=== PATIENT | female | born 1965 | race Caucasian/White ===

== ENCOUNTER 2016-04-26 12:44 | Emergency (ER) | payer OTHER ==
[~2016-04-26] VITALS: Ht 162.6 cm; Wt 85.2 kg
[~2016-04-26 12:44] MED LIST: ADULT LOW DOSE81 M1 PO; AMOXICILLIN875 MG PO; ATIVAN0.5 MG PO; BACTRIM,SEPT1 TABLET PO; BENTYL20 MG PO; CARAFATE100 MG/ML PO; CLONAZEPAM0.5 MG PO; CYCLOBENZAPRINE5 MG PO; DOCUSATE SODIU100 MG PO; Ecotrin PO; FLEXERIL10 MG PO; FLEXERIL5 MG PO; GABAPENTIN300 MG PO; HYDROCHLOROTHIA25 MG PO; HYDROCODON-ACE1 EAC7 PO; KEFLEX500 MG PO; KLONOPIN0.5 M1 PO; LEVAQUIN750 MG PO; LIBRIUM25 MG PO; LIDOCAINE700 MG TD; Librium PO; MIRALAX255 GM PO; MOTRIN IB200 MG PO; MOTRIN600 MG PO; MOTRIN800 MG PO; NAPROSYN500 MG PO; NAPROXEN500 MG PO; NEXIUM40 MG PO; NOHOMEMEDS; NORCO 5/3251 TABLET PO; OMEPRAZOLE40 M1 PO; OXYCODONE HCL5 MG PO; PEN-VEE K,VEET500 MG PO; PERCOCET 5/31 TABLET PO; PHENAZOPYRIDIN200 MG PO; PREDNISONE20 MG PO; PRILOSEC40 MG PO; PROZAC10 M2 PO; PYRIDIUM100 MG PO; PYRIDIUM200 MG PO; ROBITUSSIN AC,T10 ML PO; ROBITUSSIN DM118 ML PO; TRAMADOL HCL50 MG PO; TYLENOL EXTRA500 MG PO; TYLENOL WITH C1 EACH PO; VALIUM5 MG PO; VICODIN,LORT1 TABLET PO; ZOFRAN ODT4 MG PO; ZOFRAN ODT8 MG PO; ZOFRAN4 MG PO; depakote; elavil
[2016-04-26 14:26] LABS: MCHC 33.1 G/DL (30.0-36.0); MCV 84.8 FL (83-99); MEAN PLAT.VOLUME 9.7 uM^3 (9.5-12.4); PLATELET COUNT 307 K/uL (156-360); RBC DIS.WIDTH-CV 13.9 % (11.8-14.6); RBC DIS.WIDTH-SD 42.6 % (39-53); WHITE BLOOD COUNT 6.6 K/uL (4.1-10.2)
[2016-04-26 15:00] LABS: ANION GAP 9 MEQ/L (2-14); CHLORIDE 105 MEQ/L (99-109); POTASSIUM 4.8 MEQ/L (3.7-5.4); SAMPLE HEMOLYSIS CHECK 0; SAMPLE ICTERIC CHECK 0; SAMPLE LIPEMIA CHECK 0; SODIUM 138 MEQ/L (136-147)
[2016-04-26 15:06] LABS: GFR ESTIMATE (CALCULATED) > 59 mL/min/; GLUCOSE 95 mg/dL (70-99); UREA NITROGEN (BUN) 11 mg/dL (9-23)
[2016-04-26] MEDS ORDERED: PROVENTIL HFA6.7 GM IH (15:15)
[2016-04-26] MEDS ORDERED: TESSALON200 MG PO (15:17)
[2016-04-26 15:29] VITALS: BP 151/94
== END 2016-04-26 15:31 | disposition home or self-care (01) ==
LOC: EME 12:44
DX: J20.9 Acute bronchitis, unspecified (principal); I10 Essential (primary) hypertension; Z88.4 Allergy status to anesthetic agent; Z88.8 Allergy status to other drugs, medicaments and biological substances
CPT/HCPCS: 71020; 80048; 85027; 99281; 99284

== ENCOUNTER 2016-05-09 10:46 | Emergency (ER) | payer OTHER ==
[~2016-05-09] VITALS: Ht 162.6 cm; Wt 85.8 kg
[~2016-05-09 10:46] MED LIST changes: +PROVENTIL HFA6.7 GM IH; +TESSALON200 MG PO
[2016-05-09] MEDS ORDERED: NAPROXEN500 MG PO (13:10)
[2016-05-09] MEDS ORDERED: BACLOFEN10 MG PO (13:10)
[2016-05-09 13:34] VITALS: BP 140/88
== END 2016-05-09 13:36 | disposition home or self-care (01) ==
LOC: EME 10:46
DX: S40.021A Contusion of right upper arm, initial encounter (principal); S50.11XA Contusion of right forearm, initial encounter; S00.03XA Contusion of scalp, initial encounter; Y04.8XXA Assault by other bodily force, initial encounter; I10 Essential (primary) hypertension
CPT/HCPCS: 73060; 73090; 73130; 99281; 99284; J3010

== ENCOUNTER 2016-06-02 18:22 | Emergency (ER) | payer OTHER ==
[~2016-06-02] VITALS: Ht 162.6 cm; Wt 87.0 kg
[~2016-06-02 18:22] MED LIST changes: +BACLOFEN10 MG PO
[2016-06-02 19:01] LABS: HEMATOCRIT 39.8 % (36.0-46.0); MCHC 32.9 G/DL (30.0-36.0); MEAN PLAT.VOLUME 9.7 uM^3 (9.5-12.4); PLATELET COUNT 305 K/uL (156-360); RBC DIS.WIDTH-CV 14.4 % (11.8-14.6); RED BLOOD COUNT 4.68 M/uL (3.80-5.20); WHITE BLOOD COUNT 8.2 K/uL (4.1-10.2)
[2016-06-02 19:09] LABS: CHLORIDE 105 mEq/L (99-109); POTASSIUM 4.3 mEq/L (3.7-5.4); SODIUM 140 mEq/L (136-147)
[2016-06-02 19:11] LABS: GLUCOSE 95 mg/dL (70-99)
[2016-06-02 19:12] LABS: ANION GAP 9 MEQ/L (2-14)
[2016-06-02 19:14] LABS: GFR ESTIMATE (CALCULATED) 56 mL/min/
[2016-06-02 19:15] LABS: UREA NITROGEN (BUN) 12 mg/dL (9-23)
[2016-06-02 19:22] LABS: TROP-I INTERPRETATION NEGATIVE; TROPONIN-I < 0.01 ng/mL (0.0-0.30)
[2016-06-02 21:52] LABS: TROP-I INTERPRETATION NEGATIVE; TROPONIN-I < 0.01 ng/mL (0.0-0.30)
[2016-06-02] MEDS ORDERED: ZITHROMAX250 MG PO (22:46)
[2016-06-02] MEDS ORDERED: HYCODAN SYRUP480 ML PO (22:46)
[2016-06-02 22:53] VITALS: BP 152/91
== END 2016-06-02 22:54 | disposition home or self-care (01) ==
LOC: EME 18:22
PROVIDERS: Physician Assistant
DX: J06.9 Acute upper respiratory infection, unspecified (principal); R07.9 Chest pain, unspecified; I10 Essential (primary) hypertension; Z88.6 Allergy status to analgesic agent
CPT/HCPCS: 71020; 80048; 84484; 85027; 87651 90; 93005; 99281; 99284

== ENCOUNTER 2016-06-07 09:10 | Emergency (ER) | payer OTHER ==
[~2016-06-07] VITALS: Ht 162.6 cm; Wt 88.0 kg
[~2016-06-07 09:10] MED LIST changes: +HYCODAN SYRUP480 ML PO; +ZITHROMAX250 MG PO
[2016-06-07] MEDS ORDERED: HYCODAN SYRUP480 ML PO (10:30)
[2016-06-07] MEDS ORDERED: PREDNISONE50 MG PO (10:30)
[2016-06-07 10:36] VITALS: BP 144/98
== END 2016-06-07 10:43 | disposition home or self-care (01) ==
LOC: EME 09:10
DX: J40 Bronchitis, not specified as acute or chronic (principal); I10 Essential (primary) hypertension
CPT/HCPCS: 94640; 99281; 99284; J7512

== ENCOUNTER 2016-06-17 15:23 | Emergency (ER) | payer OTHER ==
[~2016-06-17] VITALS: Ht 162.6 cm; Wt 88.1 kg
[~2016-06-17 15:23] MED LIST changes: +PREDNISONE50 MG PO
[2016-06-17 15:27] VITALS: BP 129/69
[2016-06-17] MEDS ORDERED: LYRICA75 MG PO (17:09)
[2016-06-17] MEDS ORDERED: OMEPRAZOLE40 M1 PO (17:09)
[2016-06-17] MEDS ORDERED: MIRTAZAPINE15 MG PO (17:09)
[2016-06-17 17:25] LABS: HEMATOCRIT 42.4 % (36.0-46.0); MCH 27.9 PG (29.0-34.0); MCHC 33.3 G/DL (30.0-36.0); MCV 83.8 FL (83-99); MEAN PLAT.VOLUME 9.3 uM^3 (9.5-12.4); PLATELET COUNT 386 K/uL (156-360); RBC DIS.WIDTH-CV 13.9 % (11.8-14.6); RBC DIS.WIDTH-SD 42.2 % (39-53); RED BLOOD COUNT 5.06 M/uL (3.80-5.20); WHITE BLOOD COUNT 6.3 K/uL (4.1-10.2)
[2016-06-17 17:46] LABS: CHLORIDE 106 mEq/L (99-109); POTASSIUM 3.9 mEq/L (3.7-5.4); SODIUM 144 mEq/L (136-147)
[2016-06-17 17:47] LABS: GLUCOSE 93 mg/dL (70-99)
[2016-06-17 17:48] LABS: TROP-I INTERPRETATION NEGATIVE; TROPONIN-I < 0.01 ng/mL (0.0-0.30)
[2016-06-17 17:49] LABS: ANION GAP 10 MEQ/L (2-14)
[2016-06-17 17:51] LABS: GFR ESTIMATE (CALCULATED) 56 mL/min/
[2016-06-17 17:52] LABS: UREA NITROGEN (BUN) 18 mg/dL (9-23)
== END 2016-06-17 19:02 | disposition left against medical advice (07) ==
LOC: EME 15:23
PROVIDERS: Nurse Practitioner Family
DX: S29.011A Strain of muscle and tendon of front wall of thorax, initial encounter (principal); J06.9 Acute upper respiratory infection, unspecified; I10 Essential (primary) hypertension
CPT/HCPCS: 71020; 80048; 84484; 85027; 93005; 99281; 99284

== ENCOUNTER 2016-06-22 08:25 | Emergency (ER) | payer OTHER ==
[~2016-06-22] VITALS: Ht 162.6 cm; Wt 89.6 kg
[~2016-06-22 08:25] MED LIST changes: +LYRICA75 MG PO; +MIRTAZAPINE15 MG PO
[2016-06-22 09:08] LABS: HEMATOCRIT 35.9 % (36.0-46.0); MCH 27.4 PG (29.0-34.0); MCHC 32.9 G/DL (30.0-36.0); MCV 83.3 FL (83-99); MEAN PLAT.VOLUME 9.9 uM^3 (9.5-12.4); PLATELET COUNT 332 K/uL (156-360); RBC DIS.WIDTH-CV 13.1 % (11.8-14.6); RBC DIS.WIDTH-SD 39.8 % (39-53); RED BLOOD COUNT 4.31 M/uL (3.80-5.20)
[2016-06-22 09:09] LABS: WHITE BLOOD COUNT 14.1 K/uL (4.1-10.2)
[2016-06-22 09:39] LABS: ANION GAP 9 MEQ/L (2-14); CHLORIDE 105 MEQ/L (99-109); GFR ESTIMATE (CALCULATED) > 59 mL/min/; GLUCOSE 221 mg/dL (70-99); POTASSIUM 3.8 MEQ/L (3.7-5.4); SAMPLE HEMOLYSIS CHECK 0; SAMPLE ICTERIC CHECK 0; SAMPLE LIPEMIA CHECK 0; UREA NITROGEN (BUN) 10 mg/dL (9-23)
[2016-06-22 09:40] LABS: SODIUM 136 MEQ/L (136-147)
[2016-06-22 09:41] LABS: TROP-I INTERPRETATION NEGATIVE; TROPONIN-I < 0.01 ng/mL (0.0-0.30)
[2016-06-22] MEDS ORDERED: LEVAQUIN750 MG PO (10:53)
[2016-06-22 11:11] VITALS: BP 146/94
== END 2016-06-22 11:45 | disposition home or self-care (01) ==
LOC: EME 08:25
DX: J18.9 Pneumonia, unspecified organism (principal); I10 Essential (primary) hypertension
CPT/HCPCS: 71020; 80048; 84484; 85027; 93005; 99281; 99285; J1956; J2405; J3010; J7030

== ENCOUNTER 2016-07-23 19:36 | Emergency (ER) | payer OTHER ==
[~2016-07-23] VITALS: Ht 162.6 cm; Wt 90.0 kg
[2016-07-23] MEDS ORDERED: MOTRIN800 MG PO (21:22)
== END 2016-07-23 21:41 | disposition home or self-care (01) ==
LOC: EME 19:36
DX: M25.552 Pain in left hip (principal); M25.562 Pain in left knee; W18.30XA Fall on same level, unspecified, initial encounter
CPT/HCPCS: 73502; 73564; 99281; 99284

== ENCOUNTER 2016-09-16 19:15 | Emergency (ER) | payer OTHER ==
[~2016-09-16] VITALS: Ht 162.6 cm; Wt 89.1 kg
[2016-09-16 20:25] LABS: MCH 28.5 PG (29.0-34.0); MCHC 33.4 G/DL (30.0-36.0); MCV 85.4 FL (83-99); MEAN PLAT.VOLUME 9.7 uM^3 (9.5-12.4); PLATELET COUNT 293 K/uL (156-360); RBC DIS.WIDTH-CV 14.3 % (11.8-14.6); RBC DIS.WIDTH-SD 44.1 % (39-53); WHITE BLOOD COUNT 6.5 K/uL (4.1-10.2)
[2016-09-16 20:48] LABS: CHLORIDE 105 mEq/L (99-109); POTASSIUM 4.2 mEq/L (3.7-5.4); SODIUM 140 mEq/L (136-147)
[2016-09-16 20:50] LABS: GLUCOSE 104 mg/dL (70-99)
[2016-09-16 20:52] LABS: ANION GAP 8 MEQ/L (2-14)
[2016-09-16 20:54] LABS: GFR ESTIMATE (CALCULATED) 56 mL/min/
[2016-09-16 20:55] LABS: UREA NITROGEN (BUN) 11 mg/dL (9-23)
[2016-09-16 20:58] LABS: TROP-I INTERPRETATION NEGATIVE; TROPONIN-I < 0.01 ng/mL (0.0-0.30)
[2016-09-16] MEDS ORDERED: ZITHROMAX Z-PA250 MG PO (21:20)
[2016-09-16] MEDS ORDERED: HYCODAN SYRUP480 ML PO (21:21)
[2016-09-16] MEDS ORDERED: MEDROL DOSEPAK4 MG PO (21:21)
[2016-09-16 21:42] VITALS: BP 135/91
== END 2016-09-16 21:46 | disposition home or self-care (01) ==
LOC: EME 19:15
PROVIDERS: Physician Assistant
DX: J20.9 Acute bronchitis, unspecified (principal); I10 Essential (primary) hypertension; F41.9 Anxiety disorder, unspecified; F32.9 Major depressive disorder, single episode, unspecified; F10.21 Alcohol dependence, in remission; F19.10 Other psychoactive substance abuse, uncomplicated
CPT/HCPCS: 71020; 80048; 84484; 85027; 93005; 99281; 99284; J7512

== ENCOUNTER 2016-09-22 14:02 | Emergency (ER) | payer OTHER ==
[~2016-09-22] VITALS: Ht 162.6 cm; Wt 90.1 kg
[~2016-09-22 14:02] MED LIST changes: +MEDROL DOSEPAK4 MG PO; +ZITHROMAX Z-PA250 MG PO
[2016-09-22 18:17] VITALS: BP 149/93
== END 2016-09-22 18:18 | disposition home or self-care (01) ==
LOC: EME 14:02
DX: N81.10 Cystocele, unspecified (principal); I10 Essential (primary) hypertension; Z90.49 Acquired absence of other specified parts of digestive tract
CPT/HCPCS: 99281; 99284

== ENCOUNTER 2016-11-01 18:44 | Emergency (ER) | payer OTHER ==
[~2016-11-01] VITALS: Ht 162.6 cm; Wt 88.1 kg
[2016-11-01 18:53] VITALS: BP 157/104
[2016-11-01] MEDS ORDERED: TESSALON PERLE100 MG PO (19:57)
[2016-11-01] MEDS ORDERED: PREDNISONE20 MG PO (19:57)
[2016-11-01] MEDS ORDERED: VENTOLIN HFA18 GM IH (19:57)
== END 2016-11-01 20:50 | disposition home or self-care (01) ==
LOC: EME 18:44
DX: J20.9 Acute bronchitis, unspecified (principal); I10 Essential (primary) hypertension
CPT/HCPCS: 71020; 99281; 99283; J7512

== ENCOUNTER 2016-11-07 14:39 | Emergency (ER) | payer OTHER ==
[~2016-11-07] VITALS: Ht 162.6 cm; Wt 86.3 kg
[~2016-11-07 14:39] MED LIST changes: +TESSALON PERLE100 MG PO; +VENTOLIN HFA18 GM IH
[2016-11-07 15:10] LABS: HEMATOCRIT 39.9 % (36.0-46.0); MCH 28.1 PG (29.0-34.0); MCHC 33.1 G/DL (30.0-36.0); MCV 85.1 FL (83-99); MEAN PLAT.VOLUME 9.6 uM^3 (9.5-12.4); PLATELET COUNT 304 K/uL (156-360); RBC DIS.WIDTH-CV 14.6 % (11.8-14.6); RBC DIS.WIDTH-SD 45.3 % (39-53); RED BLOOD COUNT 4.69 M/uL (3.80-5.20); WHITE BLOOD COUNT 6.3 K/uL (4.1-10.2)
[2016-11-07 15:24] LABS: ANION GAP 8 MEQ/L (2-14); CHLORIDE 110 mEq/L (99-109); GLUCOSE 97 mg/dL (70-99); POTASSIUM 3.7 mEq/L (3.7-5.4); SODIUM 141 mEq/L (136-147)
[2016-11-07 15:26] LABS: GFR ESTIMATE (CALCULATED) > 59 mL/min/
[2016-11-07 15:27] LABS: UREA NITROGEN (BUN) 9 mg/dL (9-23)
[2016-11-07 15:31] LABS: TROP-I INTERPRETATION NEGATIVE; TROPONIN-I < 0.01 ng/mL (0.0-0.30)
[2016-11-07 15:42] LABS: QUANTITATIVE HCG < 4.0 MIU/ML
[2016-11-07 15:43] LABS: ADD MIUA? YES; BILIRUBIN NEGATIVE; BLOOD NEGATIVE; COLOR YELLOW ((YELLOW)); GLUCOSE (STRIP) NEGATIVE; KETONES NEGATIVE; LEUKOCYTES NEGATIVE; NITRITE NEGATIVE; PROTEIN (STRIP) 30; SPECIFIC GRAVITY 1.028 (1.000-1.030); UROBILINOGEN 0.2 MG/DL (0.2-1.0)
[2016-11-07 16:04] LABS: BACTERIA NONE SEEN /HPF; CASTS NONE SEEN /LPF; CRYSTALS NONE SEEN; EPITHELIAL CELLS RARE /HPF; MUCUS 3+ /LPF; RED BLOOD CELLS 0-5 /HPF (0-5); UCUL ADDED? NO; WHITE BLOOD CELLS 0-5 /HPF (0-5)
[2016-11-07] MEDS ORDERED: NORCO 5/3251 TABLET PO (17:02)
[2016-11-07] MEDS ORDERED: MOTRIN800 MG PO (17:02)
[2016-11-07 17:21] VITALS: BP 121/85
== END 2016-11-07 17:22 | disposition home or self-care (01) ==
LOC: EME 14:39
PROVIDERS: Nurse Practitioner Family
DX: R10.9 Unspecified abdominal pain (principal); I10 Essential (primary) hypertension; Z88.6 Allergy status to analgesic agent; Z88.5 Allergy status to narcotic agent
CPT/HCPCS: 71020; 74176; 80048; 81003; 84484; 84702; 85027; 93005; 99281; 99284

== ENCOUNTER 2016-11-22 14:12 | Emergency (ER) | payer OTHER ==
[~2016-11-22] VITALS: Ht 162.6 cm; Wt 85.0 kg
[2016-11-22 15:06] LABS: HEMATOCRIT 38.3 % (36.0-46.0); MCHC 33.4 G/DL (30.0-36.0); MCV 86.8 FL (83-99); MEAN PLAT.VOLUME 9.8 uM^3 (9.5-12.4); PLATELET COUNT 313 K/uL (156-360); RBC DIS.WIDTH-CV 13.7 % (11.8-14.6); RBC DIS.WIDTH-SD 44.2 % (39-53); RED BLOOD COUNT 4.41 M/uL (3.80-5.20); WHITE BLOOD COUNT 4.9 K/uL (4.1-10.2)
[2016-11-22 15:16] LABS: CHLORIDE 106 mEq/L (99-109); POTASSIUM 3.7 mEq/L (3.7-5.4); SODIUM 138 mEq/L (136-147)
[2016-11-22 15:18] LABS: GLUCOSE 86 mg/dL (70-99)
[2016-11-22 15:19] LABS: ANION GAP 8 MEQ/L (2-14)
[2016-11-22 15:22] LABS: GFR ESTIMATE (CALCULATED) > 59 mL/min/
[2016-11-22 15:23] LABS: UREA NITROGEN (BUN) 12 mg/dL (9-23)
[2016-11-22 15:27] LABS: TROP-I INTERPRETATION NEGATIVE; TROPONIN-I < 0.01 ng/mL (0.0-0.30)
[2016-11-22 15:36] VITALS: BP 142/91
== END 2016-11-22 15:37 | disposition left against medical advice (07) ==
LOC: EME 14:12
PROVIDERS: Nurse Practitioner Family
DX: R07.9 Chest pain, unspecified (principal); R42 Dizziness and giddiness; R06.00 Dyspnea, unspecified; I10 Essential (primary) hypertension; Z90.49 Acquired absence of other specified parts of digestive tract
CPT/HCPCS: 71020; 80048; 84484; 85027; 85379; 93005; 99281; 99284

== ENCOUNTER 2017-01-21 11:38 | Emergency (ER) | payer OTHER ==
[~2017-01-21] VITALS: Ht 162.6 cm; Wt 88.8 kg
[2017-01-21] MEDS ORDERED: NORCO 7.5/321 TABLET PO (13:22)
[2017-01-21] MEDS ORDERED: LIDOCAINE20 MG/1 M5 PO (13:22)
[2017-01-21] MEDS ORDERED: INDOCIN50 MG PO (13:22)
[2017-01-21] MEDS ORDERED: AUGMENTIN875 MG PO (13:22)
[2017-01-21 14:02] VITALS: BP 149/116
== END 2017-01-21 14:03 | disposition home or self-care (01) ==
LOC: EME 11:38
DX: K04.7 Periapical abscess without sinus (principal); K02.9 Dental caries, unspecified; R42 Dizziness and giddiness; I10 Essential (primary) hypertension
CPT/HCPCS: 99281; 99284

== ENCOUNTER 2017-01-31 08:17 | Emergency (ER) | payer OTHER ==
[~2017-01-31] VITALS: Ht 162.6 cm; Wt 89.9 kg
[~2017-01-31 08:17] MED LIST changes: +AUGMENTIN875 MG PO; +INDOCIN50 MG PO; +LIDOCAINE20 MG/1 M5 PO; +NORCO 7.5/321 TABLET PO
[2017-01-31 08:55] LABS: EOSINOPHIL (%) 3.7 % (0-5); EOSINOPHIL COUNT 0.3 K/uL (0-0.3); HEMATOCRIT 39.8 % (36.0-46.0); IMMATURE GRANULOCYTE (%) 0.4 % (0.0-0.7); INSTRUMENT ABS NEUTROPHIL CT 4.2 K/uL; LYMPHOCYTE COUNT 2.1 K/uL (1.0-2.8); MCHC 33.4 G/DL (30.0-36.0); MCV 86.7 FL (83-99); MEAN PLAT.VOLUME 9.6 uM^3 (9.5-12.4); MONOCYTE (%) 8.3 % (3-12); MONOCYTE COUNT 0.6 K/uL (0-0.8); NEUTROPHIL (%) 57.5 % (45-76); NEUTROPHIL COUNT 4.2 K/uL (1.8-6.4); PLATELET COUNT 291 K/uL (156-360); RBC DIS.WIDTH-CV 13.4 % (11.8-14.6); RBC DIS.WIDTH-SD 41.8 % (39-53); RED BLOOD COUNT 4.59 M/uL (3.80-5.20); WHITE BLOOD COUNT 7.3 K/uL (4.1-10.2)
[2017-01-31 09:06] LABS: CHLORIDE 108 mEq/L (99-109); POTASSIUM 4.1 mEq/L (3.7-5.4); SODIUM 139 mEq/L (136-147)
[2017-01-31 09:08] LABS: GLUCOSE 98 mg/dL (70-99)
[2017-01-31 09:09] LABS: ANION GAP 9 MEQ/L (2-14)
[2017-01-31 09:12] LABS: GFR ESTIMATE (CALCULATED) > 59 mL/min/
[2017-01-31 09:13] LABS: UREA NITROGEN (BUN) 11 mg/dL (9-23)
[2017-01-31 10:44] LABS: ADD MIUA? YES; BILIRUBIN NEGATIVE; BLOOD NEGATIVE; COLOR STRAW ((YELLOW)); GLUCOSE (STRIP) NEGATIVE; KETONES NEGATIVE; LEUKOCYTES TRACE; NITRITE NEGATIVE; PROTEIN (STRIP) NEGATIVE; UROBILINOGEN 0.2 MG/DL (0.2-1.0)
[2017-01-31 10:49] LABS: BACTERIA RARE /HPF; EPITHELIAL CELLS RARE /HPF; MUCUS TRACE /LPF; RED BLOOD CELLS 0-5 /HPF (0-5); URIC ACID CRYSTALS 1+ /HPF; WHITE BLOOD CELLS 0-5 /HPF (0-5)
[2017-01-31] MEDS ORDERED: PERCOCET 5/31 TABLET PO (11:06)
[2017-01-31 12:02] VITALS: BP 121/70
== END 2017-01-31 12:02 | disposition home or self-care (01) ==
LOC: EME 08:17
PROVIDERS: Emergency Medicine
DX: R10.31 Right lower quadrant pain (principal); I10 Essential (primary) hypertension; F32.9 Major depressive disorder, single episode, unspecified; F41.9 Anxiety disorder, unspecified; Z88.8 Allergy status to other drugs, medicaments and biological substances; Z90.49 Acquired absence of other specified parts of digestive tract
CPT/HCPCS: 74176; 80048; 81003; 85025; 99281; 99285; J2405; J3010; J7030

== ENCOUNTER 2017-02-28 09:46 | Emergency (ER) | payer OTHER ==
[~2017-02-28] VITALS: Ht 162.6 cm; Wt 90.3 kg
[2017-02-28 09:56] VITALS: BP 135/103
[2017-02-28 10:42] LABS: HEMATOCRIT 37.9 % (36.0-46.0); MCH 29.5 PG (29.0-34.0); MCHC 33.2 G/DL (30.0-36.0); MCV 88.8 FL (83-99); MEAN PLAT.VOLUME 9.6 uM^3 (9.5-12.4); PLATELET COUNT 248 K/uL (156-360); RBC DIS.WIDTH-CV 13.2 % (11.8-14.6); RBC DIS.WIDTH-SD 43.2 % (39-53); RED BLOOD COUNT 4.27 M/uL (3.80-5.20); WHITE BLOOD COUNT 4.9 K/uL (4.1-10.2)
[2017-02-28 10:53] LABS: CHLORIDE 108 mEq/L (99-109); POTASSIUM 3.9 mEq/L (3.7-5.4); SODIUM 139 mEq/L (136-147)
[2017-02-28 10:54] LABS: GLUCOSE 88 mg/dL (70-99)
[2017-02-28 10:56] LABS: ANION GAP 6 MEQ/L (2-14)
[2017-02-28 10:58] LABS: GFR ESTIMATE (CALCULATED) > 59 mL/min/
[2017-02-28 10:59] LABS: UREA NITROGEN (BUN) 11 mg/dL (9-23)
[2017-02-28 11:05] LABS: TROP-I INTERPRETATION NEGATIVE; TROPONIN-I < 0.01 ng/mL (0.0-0.30)
== END 2017-02-28 13:05 | disposition home or self-care (01) ==
LOC: EME 09:46
PROVIDERS: Emergency Medicine
DX: S70.02XA Contusion of left hip, initial encounter (principal); M79.662 Pain in left lower leg; W18.39XA Other fall on same level, initial encounter; R55 Syncope and collapse; R42 Dizziness and giddiness; I10 Essential (primary) hypertension
CPT/HCPCS: 73502; 73552; 73590; 80048; 84484; 85027; 93005; 99281; 99283

== ENCOUNTER 2017-04-01 11:20 | Emergency (ER) | payer OTHER ==
[~2017-04-01] VITALS: Ht 162.6 cm; Wt 91.2 kg
[2017-04-01] MEDS ORDERED: FLEXERIL5 MG PO (13:26)
[2017-04-01 13:45] VITALS: BP 139/104
== END 2017-04-01 13:45 | disposition home or self-care (01) ==
LOC: EME 11:20
DX: S43.401A Unspecified sprain of right shoulder joint, initial encounter (principal); M54.2 Cervicalgia; Y04.2XXA Assault by strike against or bumped into by another person, initial encounter; I10 Essential (primary) hypertension
CPT/HCPCS: 73030; 99281; 99283

== ENCOUNTER 2017-05-15 15:12 | Emergency (ER) | payer OTHER ==
[~2017-05-15] VITALS: Ht 162.6 cm; Wt 89.0 kg
[2017-05-15 15:41] LABS: HEMATOCRIT 42.4 % (36.0-46.0); HEMOGLOBIN 14.6 G/DL (11.9-15.5); MCH 30.4 PG (29.0-34.0); MCHC 34.4 G/DL (30.0-36.0); MCV 88.1 FL (83-99); PLATELET COUNT 337 K/uL (156-360); RBC DIS.WIDTH-CV 12.8 % (11.8-14.6); RBC DIS.WIDTH-SD 41.2 % (39-53); RED BLOOD COUNT 4.81 M/uL (3.80-5.20); WHITE BLOOD COUNT 7.2 K/uL (4.1-10.2)
[2017-05-15 15:54] LABS: CHLORIDE 105 mEq/L (99-109); POTASSIUM 3.9 mEq/L (3.7-5.4); SODIUM 141 mEq/L (136-147)
[2017-05-15 15:55] LABS: GLUCOSE 85 mg/dL (70-99)
[2017-05-15 15:59] LABS: GFR ESTIMATE (CALCULATED) > 59 mL/min/
[2017-05-15 16:00] LABS: UREA NITROGEN (BUN) 12 mg/dL (9-23)
[2017-05-15 16:59] VITALS: BP 146/89
== END 2017-05-15 17:00 | disposition left against medical advice (07) ==
LOC: EME 15:12
DX: B34.9 Viral infection, unspecified (principal); R05 Cough; I10 Essential (primary) hypertension; F31.9 Bipolar disorder, unspecified; F32.9 Major depressive disorder, single episode, unspecified; F41.9 Anxiety disorder, unspecified; Z90.49 Acquired absence of other specified parts of digestive tract; Z88.5 Allergy status to narcotic agent; Z88.6 Allergy status to analgesic agent; Z88.8 Allergy status to other drugs, medicaments and biological substances
CPT/HCPCS: 71046; 80048; 85027; 87502; 99281; 99283

== ENCOUNTER 2017-05-24 10:14 | Emergency (ER) | payer OTHER ==
[~2017-05-24] VITALS: Ht 162.6 cm; Wt 90.6 kg
[2017-05-24 10:33] LABS: APPEARANCE SL.HAZY ((CLEAR)); BILIRUBIN NEGATIVE; BLOOD SMALL; COLOR YELLOW ((YELLOW)); GLUCOSE (STRIP) NEGATIVE; KETONES 5; LEUKOCYTES LARGE; NITRITE NEGATIVE; PROTEIN (STRIP) 30; UROBILINOGEN 0.2 MG/DL (0.2-1.0)
[2017-05-24 10:50] LABS: HEMOGLOBIN 14.8 G/DL (11.9-15.5); MCH 29.9 PG (29.0-34.0); MCHC 33.6 G/DL (30.0-36.0); MCV 88.9 FL (83-99); PLATELET COUNT 322 K/uL (156-360); RBC DIS.WIDTH-CV 13.2 % (11.8-14.6); RBC DIS.WIDTH-SD 43.1 % (39-53); RED BLOOD COUNT 4.95 M/uL (3.80-5.20); WHITE BLOOD COUNT 6.7 K/uL (4.1-10.2)
[2017-05-24 11:01] LABS: CHLORIDE 109 mEq/L (99-109); POTASSIUM 4.6 mEq/L (3.7-5.4); SODIUM 142 mEq/L (136-147)
[2017-05-24 11:02] LABS: GLUCOSE 83 mg/dL (70-99)
[2017-05-24 11:04] LABS: EPITHELIAL CELLS RARE /HPF; MUCUS NONE SEEN /LPF; RED BLOOD CELLS RARE /HPF (0-5); WHITE BLOOD CELLS 20-30 /HPF (0-5)
[2017-05-24 11:05] LABS: BACTERIA RARE /HPF; UCUL ADDED? YES
[2017-05-24 11:06] LABS: GFR ESTIMATE (CALCULATED) > 59 mL/min/
[2017-05-24 11:07] LABS: UREA NITROGEN (BUN) 10 mg/dL (9-23)
[2017-05-24] MEDS ORDERED: MACROBID100 MG PO (12:11)
[2017-05-24] MEDS ORDERED: PYRIDIUM100 MG PO (12:15)
[2017-05-24 12:33] VITALS: BP 151/83
== END 2017-05-24 12:34 | disposition home or self-care (01) ==
LOC: EME 10:14
DX: N39.0 Urinary tract infection, site not specified (principal); I10 Essential (primary) hypertension; F32.9 Major depressive disorder, single episode, unspecified; F41.9 Anxiety disorder, unspecified; Z87.01 Personal history of pneumonia (recurrent); Z90.49 Acquired absence of other specified parts of digestive tract; Z88.5 Allergy status to narcotic agent; Z88.6 Allergy status to analgesic agent; Z88.8 Allergy status to other drugs, medicaments and biological substances
CPT/HCPCS: 74176; 80048; 81003; 85027; 87086; 99281; 99284; J7030

== ENCOUNTER 2017-08-07 17:57 | Emergency (ER) | payer OTHER ==
[~2017-08-07] VITALS: Ht 162.6 cm; Wt 96.3 kg
[~2017-08-07 17:57] MED LIST changes: +MACROBID100 MG PO
[2017-08-07 18:55] LABS: HEMATOCRIT 40.1 % (36.0-46.0); HEMOGLOBIN 13.6 G/DL (11.9-15.5); MCH 30.2 PG (29.0-34.0); MCHC 33.9 G/DL (30.0-36.0); MCV 88.9 FL (83-99); PLATELET COUNT 317 K/uL (156-360); RBC DIS.WIDTH-SD 42.8 % (39-53); RED BLOOD COUNT 4.51 M/uL (3.80-5.20); WHITE BLOOD COUNT 6.2 K/uL (4.1-10.2)
[2017-08-07 19:18] LABS: ALBUMIN 3.3 G/DL (3.2-4.8); CHLORIDE 107 MEQ/L (99-109); SODIUM 140 MEQ/L (136-147); TOTAL BILIRUBIN 0.4 MG/DL (0.0-1.0)
[2017-08-07 19:22] LABS: QUANTITATIVE HCG 4.7 MIU/ML
[2017-08-07 19:23] LABS: ALKALINE PHOSPHATASE 69 IU/L (3-129); ALT (GPT) 19 IU/L (3-49); AST (GOT) 21 IU/L (2-34); GFR ESTIMATE (CALCULATED) > 59 mL/min/; GLUCOSE 96 mg/dL (70-99); TOTAL PROTEIN 5.7 G/DL (6.4-8.3); UREA NITROGEN (BUN) 10 mg/dL (9-23)
[2017-08-07 20:33] LABS: LIPASE 16 U/L (1.0-51.0)
[2017-08-07 20:38] LABS: TROP-I INTERPRETATION NEGATIVE; TROPONIN-I < 0.01 ng/mL (0.0-0.30)
[2017-08-07 21:22] LABS: APPEARANCE SL.HAZY ((CLEAR)); BILIRUBIN NEGATIVE; BLOOD NEGATIVE; COLOR YELLOW ((YELLOW)); GLUCOSE (STRIP) NEGATIVE; KETONES NEGATIVE; LEUKOCYTES LARGE; NITRITE NEGATIVE; PROTEIN (STRIP) NEGATIVE; SPECIFIC GRAVITY 1.015 (1.000-1.030); UROBILINOGEN 0.2 MG/DL (0.2-1.0)
[2017-08-07 21:29] LABS: BACTERIA RARE /HPF; EPITHELIAL CELLS 2+ /HPF; MUCUS TRACE /LPF; UCUL ADDED? YES
[2017-08-07] MEDS ORDERED: MOTRIN800 MG PO (21:48)
[2017-08-07] MEDS ORDERED: REGLAN10 MG PO (21:48)
[2017-08-07] MEDS ORDERED: LEVSIN0.125 MG PO (21:48)
[2017-08-07 22:18] VITALS: BP 162/85
== END 2017-08-07 22:22 | disposition home or self-care (01) ==
LOC: EME 17:57
DX: R10.13 Epigastric pain (principal); R10.11 Right upper quadrant pain; K57.30 Diverticulosis of large intestine without perforation or abscess without bleeding; I10 Essential (primary) hypertension; F41.9 Anxiety disorder, unspecified; F32.9 Major depressive disorder, single episode, unspecified; F31.9 Bipolar disorder, unspecified; Z87.19 Personal history of other diseases of the digestive system; Z90.49 Acquired absence of other specified parts of digestive tract; Z98.51 Tubal ligation status; Z88.5 Allergy status to narcotic agent; Z88.6 Allergy status to analgesic agent
CPT/HCPCS: 71046; 74177; 80053; 81003; 83690; 84484; 84702; 85027; 87086; 93005; 99281; 99285; J2765; J7120

== ENCOUNTER 2017-09-25 15:44 | Emergency (ER) | payer OTHER ==
[~2017-09-25] VITALS: Ht 162.6 cm; Wt 98.8 kg
[~2017-09-25 15:44] MED LIST changes: +LEVSIN0.125 MG PO; +REGLAN10 MG PO
[2017-09-25 16:45] LABS: HEMATOCRIT 39.6 % (36.0-46.0); HEMOGLOBIN 13.6 G/DL (11.9-15.5); MCH 30.3 PG (29.0-34.0); MCHC 34.3 G/DL (30.0-36.0); MCV 88.2 FL (83-99); PLATELET COUNT 296 K/uL (156-360); RBC DIS.WIDTH-CV 12.5 % (11.8-14.6); RBC DIS.WIDTH-SD 40.5 % (39-53); RED BLOOD COUNT 4.49 M/uL (3.80-5.20); WHITE BLOOD COUNT 6.4 K/uL (4.1-10.2)
[2017-09-25 16:54] LABS: CHLORIDE 107 mEq/L (99-109); POTASSIUM 4.3 mEq/L (3.7-5.4); SODIUM 140 mEq/L (136-147)
[2017-09-25 16:55] LABS: GLUCOSE 81 mg/dL (70-99)
[2017-09-25 16:59] LABS: CREATININE 0.9 mg/dL (0.6-1.3); GFR ESTIMATE (CALCULATED) > 59 mL/min/; SERUM ETHYL ALCOHOL < 10 mg/dL
[2017-09-25 17:00] LABS: UREA NITROGEN (BUN) 9 mg/dL (9-23)
[2017-09-25 17:07] LABS: TROP-I INTERPRETATION NEGATIVE; TROPONIN-I < 0.01 ng/mL (0.0-0.30)
[2017-09-25 17:58] VITALS: BP 138/101
== END 2017-09-25 18:00 | disposition home or self-care (01) ==
LOC: EME 15:44
DX: R07.9 Chest pain, unspecified (principal); I10 Essential (primary) hypertension; Z88.5 Allergy status to narcotic agent; Z88.6 Allergy status to analgesic agent
CPT/HCPCS: 71046; 80048; 84484; 85027; 93005; 99281; 99283; G0480

== ENCOUNTER 2017-10-12 21:12 | Emergency (ER) | payer OTHER ==
[~2017-10-12] VITALS: Ht 162.6 cm; Wt 102.0 kg
[2017-10-12 22:09] LABS: MCH 29.7 PG (29.0-34.0); MCHC 34.2 G/DL (30.0-36.0); PLATELET COUNT 298 K/uL (156-360); RBC DIS.WIDTH-CV 12.3 % (11.8-14.6); RBC DIS.WIDTH-SD 39.7 % (39-53); RED BLOOD COUNT 4.37 M/uL (3.80-5.20); WHITE BLOOD COUNT 6.3 K/uL (4.1-10.2)
[2017-10-12 22:14] LABS: ALBUMIN 3.4 g/dL (3.2-4.8); CHLORIDE 109 mEq/L (99-109); POTASSIUM 3.9 mEq/L (3.7-5.4); SODIUM 141 mEq/L (136-147)
[2017-10-12 22:17] LABS: GLUCOSE 107 mg/dL (70-99); TOTAL PROTEIN 5.6 g/dL (6.4-8.3)
[2017-10-12 22:20] LABS: ALKALINE PHOSPHATASE 88 IU/L (3-129); CREATININE 1.1 mg/dL (0.6-1.3); GFR ESTIMATE (CALCULATED) 56 mL/min/
[2017-10-12 22:35] LABS: QUANTITATIVE HCG < 4.0 MIU/ML
[2017-10-12 22:36] LABS: APPEARANCE CLEAR ((CLEAR)); BILIRUBIN NEGATIVE; BLOOD NEGATIVE; COLOR YELLOW ((YELLOW)); GLUCOSE (STRIP) NEGATIVE; KETONES NEGATIVE; LEUKOCYTES TRACE; NITRITE NEGATIVE; PROTEIN (STRIP) NEGATIVE; SPECIFIC GRAVITY 1.017 (1.000-1.030); UROBILINOGEN 0.2 MG/DL (0.2-1.0)
[2017-10-12 22:48] LABS: TOTAL BILIRUBIN 0.3 mg/dL (0.0-1.0)
[2017-10-12 22:50] LABS: UREA NITROGEN (BUN) 11 mg/dL (9-23)
[2017-10-12 22:52] LABS: ALT (GPT) 17 IU/L (3-49); AST (GOT) 22 IU/L (2-34); DIRECT BILIRUBIN 0.1 mg/dL (0.0-0.3); LIPASE 18 U/L (1.0-51.0)
[2017-10-12 22:53] LABS: CREATINE KINASE 69 IU/L (1-294)
[2017-10-12 22:58] LABS: BACTERIA NONE SEEN /HPF; EPITHELIAL CELLS RARE /HPF; HYALINE CASTS 0-5 /LPF; MUCUS NONE SEEN /LPF; RED BLOOD CELLS 0-5 /HPF (0-5); UCUL ADDED? NO; WHITE BLOOD CELLS 0-5 /HPF (0-5)
[2017-10-12 23:42] LABS: COCAINE PRESUMPTIVE POSITIVE (150 ng/mL); METHAMPHETAMINE NEGATIVE (500 ng/mL); OPIATES (MORPHINE) PRESUMPTIVE POSITIVE (100 ng/mL); PHENCYCLIDINE NEGATIVE (25 ng/mL); THC CANNABINOIDS NEGATIVE (50 ng/mL)
[2017-10-12 23:43] LABS: AMPHETAMINE NEGATIVE (500 ng/mL); BARBITURATES NEGATIVE (200 ng/mL); BENZODIAZEPINES NEGATIVE (150 ng/mL); BUPRENORPHINE NEGATIVE (10 ng/mL); METHADONE NEGATIVE (200 ng/mL); OXYCODONE PRESUMPTIVE POSITIVE (100 ng/mL); PROPOXYPHENE NEGATIVE (300 ng/mL); TRICYCLIC ANTIDEPRESSANTS NEGATIVE (300 ng/mL)
[2017-10-13] MEDS ORDERED: MIRALAX255 GM PO (00:10)
[2017-10-13] MEDS ORDERED: ZOFRAN ODT8 MG PO (00:10)
[2017-10-13 00:53] VITALS: BP 130/86
== END 2017-10-13 00:56 | disposition home or self-care (01) ==
LOC: EME 21:12 → EXP 21:12
PROVIDERS: Physician Assistant
DX: S30.1XXA Contusion of abdominal wall, initial encounter (principal); X58.XXXA Exposure to other specified factors, initial encounter; R60.0 Localized edema; K59.00 Constipation, unspecified; I10 Essential (primary) hypertension; F41.9 Anxiety disorder, unspecified; F32.9 Major depressive disorder, single episode, unspecified; F31.9 Bipolar disorder, unspecified; Z87.19 Personal history of other diseases of the digestive system; Z90.49 Acquired absence of other specified parts of digestive tract; Z98.51 Tubal ligation status; Z88.6 Allergy status to analgesic agent; Z88.5 Allergy status to narcotic agent; Z88.8 Allergy status to other drugs, medicaments and biological substances
CPT/HCPCS: 74176; 80053; 81003; 82248; 82550; 83690; 83880; 84702; 84999; 85027; 99281; 99284; J3010

== ENCOUNTER 2017-10-19 17:59 | Emergency (ER) | payer OTHER ==
[~2017-10-19] VITALS: Ht 162.6 cm; Wt 101.8 kg
[2017-10-19 19:39] LABS: HEMATOCRIT 39.1 % (36.0-46.0); HEMOGLOBIN 13.4 G/DL (11.9-15.5); MCH 29.8 PG (29.0-34.0); MCHC 34.3 G/DL (30.0-36.0); MCV 87.1 FL (83-99); PLATELET COUNT 310 K/uL (156-360); RBC DIS.WIDTH-CV 12.3 % (11.8-14.6); RBC DIS.WIDTH-SD 39.1 % (39-53); RED BLOOD COUNT 4.49 M/uL (3.80-5.20); WHITE BLOOD COUNT 6.8 K/uL (4.1-10.2)
[2017-10-19 19:55] LABS: CHLORIDE 107 mEq/L (99-109); SODIUM 141 mEq/L (136-147)
[2017-10-19 19:57] LABS: GLUCOSE 85 mg/dL (70-99)
[2017-10-19 20:01] LABS: CREATININE 0.9 mg/dL (0.6-1.3); GFR ESTIMATE (CALCULATED) > 59 mL/min/
[2017-10-19 20:02] LABS: UREA NITROGEN (BUN) 8 mg/dL (9-23)
[2017-10-19 21:09] LABS: TROP-I INTERPRETATION NEGATIVE; TROPONIN-I < 0.01 ng/mL (0.0-0.30)
[2017-10-19 21:35] LABS: CREATINE KINASE 52 IU/L (1-294)
[2017-10-19] MEDS ORDERED: LASIX40 MG PO (23:42)
[2017-10-19] MEDS ORDERED: PERCOCET 10/1 TABLET PO (23:42)
[2017-10-20] VITALS: BP 145/120
== END 2017-10-20 | disposition home or self-care (01) ==
LOC: EME 17:59
PROVIDERS: Emergency Medicine; Physician Assistant
DX: R60.0 Localized edema (principal); F14.10 Cocaine abuse, uncomplicated; I10 Essential (primary) hypertension; F31.9 Bipolar disorder, unspecified; F41.9 Anxiety disorder, unspecified; F32.9 Major depressive disorder, single episode, unspecified; Z90.49 Acquired absence of other specified parts of digestive tract; Z88.6 Allergy status to analgesic agent; Z88.5 Allergy status to narcotic agent; Z88.8 Allergy status to other drugs, medicaments and biological substances
CPT/HCPCS: 80048; 82550; 84443; 84484; 85027; 93970; 99281; 99285; J1940

== ENCOUNTER 2017-10-23 01:48 | Emergency (ER) | payer OTHER ==
[~2017-10-23] VITALS: Ht 162.6 cm; Wt 100.9 kg
[~2017-10-23 01:48] MED LIST changes: +LASIX40 MG PO; +PERCOCET 10/1 TABLET PO
[2017-10-23] MEDS ORDERED: NORCO 5/3251 TABLET PO (03:07)
[2017-10-23 03:37] VITALS: BP 134/82
== END 2017-10-23 03:37 | disposition home or self-care (01) ==
LOC: EME → EDBD 01:48 → EME 03:37
DX: S83.91XA Sprain of unspecified site of right knee, initial encounter (principal); M25.571 Pain in right ankle and joints of right foot; W01.0XXA Fall on same level from slipping, tripping and stumbling without subsequent striking against object, initial encounter; Y04.2XXA Assault by strike against or bumped into by another person, initial encounter
CPT/HCPCS: 73564; 73590; 73610; 99281; 99284

== ENCOUNTER 2017-11-06 02:22 | Emergency (ER) | payer OTHER ==
[~2017-11-06] VITALS: Ht 162.6 cm; Wt 97.5 kg
[2017-11-06] MEDS ORDERED: NORCO 5/3251 TABLET PO (04:13)
[2017-11-06 05:01] VITALS: BP 126/79
== END 2017-11-06 05:01 | disposition home or self-care (01) ==
LOC: EME 02:22
DX: S83.91XA Sprain of unspecified site of right knee, initial encounter (principal); S93.401A Sprain of unspecified ligament of right ankle, initial encounter; W18.30XA Fall on same level, unspecified, initial encounter; Z88.6 Allergy status to analgesic agent; Z88.5 Allergy status to narcotic agent
CPT/HCPCS: 73564; 73610; 99281; 99284

== ENCOUNTER 2017-11-11 02:51 | Emergency (ER) | payer OTHER ==
[~2017-11-11] VITALS: Ht 162.6 cm; Wt 107.4 kg
[2017-11-11 03:17] LABS: BASOPHIL (%) 0.6 % (0-1); EOSINOPHIL (%) 2.9 % (0-5); EOSINOPHIL COUNT 0.2 K/uL (0-0.3); HEMATOCRIT 33.7 % (36.0-46.0); HEMOGLOBIN 11.7 G/DL (11.9-15.5); IMMATURE GRANULOCYTE (%) 0.5 % (0.0-0.7); LYMPHOCYTE (%) 31.8 % (15-42); LYMPHOCYTE COUNT 2.1 K/uL (1.0-2.8); MCH 29.5 PG (29.0-34.0); MCHC 34.7 G/DL (30.0-36.0); MCV 85.1 FL (83-99); MONOCYTE (%) 9.4 % (3-12); MONOCYTE COUNT 0.6 K/uL (0-0.8); NEUTROPHIL (%) 54.8 % (45-76); NEUTROPHIL COUNT 3.6 K/uL (1.8-6.4); PLATELET COUNT 257 K/uL (156-360); RBC DIS.WIDTH-CV 12.7 % (11.8-14.6); RBC DIS.WIDTH-SD 39.2 % (39-53); RED BLOOD COUNT 3.96 M/uL (3.80-5.20); WHITE BLOOD COUNT 6.6 K/uL (4.1-10.2)
[2017-11-11 03:25] LABS: AMYLASE 24 IU/L (1-118); CHLORIDE 114 mEq/L (99-109); POTASSIUM 3.9 mEq/L (3.7-5.4); SODIUM 145 mEq/L (136-147)
[2017-11-11 03:27] LABS: GLUCOSE 94 mg/dL (70-99)
[2017-11-11 03:30] LABS: CREATININE 0.9 mg/dL (0.6-1.3); GFR ESTIMATE (CALCULATED) > 59 mL/min/; SERUM ETHYL ALCOHOL 73 mg/dL
[2017-11-11 03:31] LABS: UREA NITROGEN (BUN) 11 mg/dL (9-23)
[2017-11-11 03:33] LABS: LIPASE 21 U/L (1.0-51.0)
[2017-11-11 03:34] LABS: CREATINE KINASE 120 IU/L (1-294)
[2017-11-11 05:26] LABS: AMPHETAMINE NEGATIVE (500 ng/mL); BARBITURATES NEGATIVE (200 ng/mL); BENZODIAZEPINES PRESUMPTIVE POSITIVE (150 ng/mL); BUPRENORPHINE NEGATIVE (10 ng/mL); COCAINE PRESUMPTIVE POSITIVE (150 ng/mL); METHADONE NEGATIVE (200 ng/mL); METHAMPHETAMINE NEGATIVE (500 ng/mL); OPIATES (MORPHINE) PRESUMPTIVE POSITIVE (100 ng/mL); OXYCODONE PRESUMPTIVE POSITIVE (100 ng/mL); PHENCYCLIDINE NEGATIVE (25 ng/mL); PROPOXYPHENE NEGATIVE (300 ng/mL); THC CANNABINOIDS NEGATIVE (50 ng/mL); TRICYCLIC ANTIDEPRESSANTS NEGATIVE (300 ng/mL)
[2017-11-11 06:08] LABS: APPEARANCE CLEAR ((CLEAR)); BILIRUBIN NEGATIVE; BLOOD NEGATIVE; COLOR STRAW ((YELLOW)); GLUCOSE (STRIP) NEGATIVE; KETONES NEGATIVE; LEUKOCYTES NEGATIVE; NITRITE NEGATIVE; PROTEIN (STRIP) NEGATIVE; SPECIFIC GRAVITY 1.033 (1.000-1.030); UCUL ADDED? NO; UROBILINOGEN 0.2 MG/DL (0.2-1.0)
[2017-11-11 06:09] LABS: BENZODIAZEPINES, URINE SCREEN POSITIVE (200 ng/mL)
[2017-11-11 08:21] VITALS: BP 142/90
[2017-11-11] MEDS ORDERED: NORCO 5/3251 TABLET PO (21:00)
== END 2017-11-11 08:30 | disposition home or self-care (01) ==
LOC: EME 02:51
PROVIDERS: Emergency Medicine
DX: S39.012A Strain of muscle, fascia and tendon of lower back, initial encounter (principal); S09.90XA Unspecified injury of head, initial encounter; F10.129 Alcohol abuse with intoxication, unspecified; F14.10 Cocaine abuse, uncomplicated; F11.10 Opioid abuse, uncomplicated; F13.10 Sedative, hypnotic or anxiolytic abuse, uncomplicated; W10.9XXA Fall (on) (from) unspecified stairs and steps, initial encounter; Y90.3 Blood alcohol level of 60-79 mg/100 ml; F32.9 Major depressive disorder, single episode, unspecified; F41.9 Anxiety disorder, unspecified; I10 Essential (primary) hypertension; Z88.6 Allergy status to analgesic agent; Z88.5 Allergy status to narcotic agent
CPT/HCPCS: 70450; 71260; 72125; 74177; 80048; 81003; 82150; 82550; 83690; 84999; 85025; 86850; 86900; 86901; 99281; 99285; G0480; J3010

== ENCOUNTER 2017-11-11 19:01 | Emergency (ER) | payer OTHER ==
[~2017-11-11] VITALS: Ht 162.6 cm; Wt 107.4 kg
[2017-11-11] MEDS ORDERED: NORCO 5/3251 TABLET PO (21:00)
[2017-11-11 22:17] VITALS: BP 183/104
== END 2017-11-11 22:33 | disposition home or self-care (01) ==
LOC: EME 19:01
DX: M54.9 Dorsalgia, unspecified (principal); R51 Headache; Z91.81 History of falling; Z76.5 Malingerer [conscious simulation]; I10 Essential (primary) hypertension; F31.9 Bipolar disorder, unspecified; F32.9 Major depressive disorder, single episode, unspecified; Z90.49 Acquired absence of other specified parts of digestive tract; Z88.6 Allergy status to analgesic agent; Z88.5 Allergy status to narcotic agent; Z88.8 Allergy status to other drugs, medicaments and biological substances
CPT/HCPCS: J3010

== ENCOUNTER 2017-11-13 01:38 | Emergency (ER) | payer OTHER ==
[~2017-11-13] VITALS: Ht 172.7 cm; Wt 108.7 kg
[2017-11-13 03:57] VITALS: BP 128/76
== END 2017-11-13 03:43 | disposition home or self-care (01) ==
LOC: EME → EDBD 01:38 → EME 01:38
DX: R51 Headache (principal); Y08.89XA Assault by other specified means, initial encounter; F32.9 Major depressive disorder, single episode, unspecified; I10 Essential (primary) hypertension; Z88.5 Allergy status to narcotic agent; Z88.6 Allergy status to analgesic agent
CPT/HCPCS: 70450; 99281; 99284